=== PATIENT | female | born 1970 | race Caucasian/White ===

== ENCOUNTER 2018-06-14 16:37 | Emergency (ER) | payer SELFPAY ==
[~2018-06-14] VITALS: Ht 154.9 cm; Wt 59.1 kg
[2018-06-14 16:58] VITALS: BP 178/80
--- NOTE | 2018-06-14 17:12 | NUR ---
PT AMBULATED TO BED 11
--- NOTE | 2018-06-14 17:14 | NUR ---
URINE COLLECTED AND SENT TO LAB
--- NOTE | 2018-06-14 17:40 | NUR ---
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 PT REPORTS SHARP THROBBING PAIN AT 8/10. DENIES FEVER, N/V/D.
[2018-06-14] MEDS ORDERED: LIDOCAINE 1% 500 MG/50 ML VIAL INJ SCH (18:00)
[2018-06-14] MEDS ORDERED: LIDOCAINE MPF 1% 5mL VIAL ONE (18:21)
--- NOTE | 2018-06-14 19:10 | NUR ---
Patient discharged with v/s stable. Written and verbal after care instructions given and explained. Patient alert, oriented and verbalized understanding of instructions. Ambulatory with steady gait. All questions addressed prior to discharge. ID band removed. Patient advised to follow up with PMD. Rx of Keflex, Bactrim given. Patient educated on indication of medication including possible reaction and side effects. Opportunity to ask questions provided and answered.
[2018-06-14 19:11] VITALS: BP 145/82
== END 2018-06-14 19:10 | disposition home or self-care (01) ==
LOC: MED 16:37
DX: L02.213 Cutaneous abscess of chest wall (principal); E11.9 Type 2 diabetes mellitus without complications
CPT/HCPCS: 10060; 82948; 99283; J2001